=== PATIENT | male | born 1990 | race Caucasian/White ===

== ENCOUNTER 2016-11-09 21:20 | Emergency (ER) | payer BC, OTHER ==
[~2016-11-09] VITALS: Ht 177.8 cm; Wt 75.9 kg
[2016-11-09 21:30] VITALS: TEMP 36.7; Ht 177.8 cm; Wt 75.9 kg
[2016-11-09] MEDS ORDERED: SODIUM CHLORIDE 0.9% 1000ML 1,000 ML IV STA (21:49)
[2016-11-09 21:52] LABS: ISTAT HEMOGLOBIN 12.2 g/dl (14.0-18.0); ISTAT IONIZED CALCIUM 1.2 mmol/l (1.12-1.32)
[2016-11-09 21:54] VITALS: O2SAT 98
[2016-11-09 22:00] LABS: BASO % 0.5 %; BASO ABS # 0.05 K/uL (0-0.2); COMPLETE YES; EOS % 1.7 %; HEMATOCRIT 34.4 % (42-52); IG% 0.2 %; LYMPH % 22.5 %; LYMPH ABS # 2.11 K/uL (1.2-3.4); MEAN CELL VOLUME 88.4 fL (80-100); MEAN CORPUSCULAR HEMOGLOBIN 31.1 pg (25-34); MEAN CORPUSCULAR HGB CONC 35.2 g/dl (32-36); MEAN PLATELET VOLUME 11.3 fL (7.4-10.4); MONO % 8.3 %; NEUT % 66.8 %; PLATELET COUNT 201 K/uL (130-400); RED BLOOD COUNT 3.89 M/uL (4.7-6.1); WHITE BLOOD COUNT 9.39 K/uL (4.8-10.8)
[2016-11-09 22:08] LABS: ALT/SGPT 26 U/L (12-78); BLOOD UREA NITROGEN 16 mg/dl (7-18); BUN/CREATININE RATIO 15.8 (10-20); CALCIUM 8.9 mg/dl (8.5-10.1); CARBON DIOXIDE 28 mmol/L (21-32); CHLORIDE 107 mmol/L (98-107); GLUCOSE 110 mg/dl (70-99); POTASSIUM 3.6 mmol/L (3.5-5.1); SODIUM 140 mmol/L (136-145)
[2016-11-09 22:13] LABS: ALB/GLOB RATIO 1.3 (0.9-2); ALKALINE PHOSPHATASE 44 U/L (45-117); AST/SGOT 25 U/L (15-37)
--- NOTE | 2016-11-09 22:38 | DIAGNOSTIC IMAGING REPORT ---
HEAD WITHOUT CONTRAST (CT) CLINICAL HISTORY: 25 years-old Male with trauma. Acute head injury status post trauma TECHNIQUE: Multiple axial CT images of the head were obtained without contrast. A dose lowering technique was utilized adhering to the principles of ALARA. COMPARISON: CT cervical spine of same day. FINDINGS: No acute intracranial hemorrhage, midline shift, mass, large territorial ischemia or abnormal extra-axial collection. 4 mm area of ill-defined low-attenuation within the inferior left lentiform nucleus suggests prominent perivascular space. The calvarium is intact. The paranasal sinuses, mastoid air cells, and middle ear cavities are clear. IMPRESSION: No acute intracranial abnormality. The above report was generated using voice recognition software. It may contain grammatical, syntax or spelling errors. Electronically signed by: Hussain Brandon M.D. 11/09/2016 10:31 PM Dictated Date/Time: 11/09/2016 10:29 PM
[2016-11-09] MEDS ORDERED: ALPR-411 PO (22:41)
[2016-11-09] MEDS ORDERED: BUPR1SUB23 UT (22:41)
--- NOTE | 2016-11-09 22:41 | DIAGNOSTIC IMAGING REPORT ---
CERVICAL SPINE W/O CLINICAL HISTORY: 25 years-old Male with trauma. Acute neck injury status post trauma COMPARISON: CT head of same day. TECHNIQUE: Multiple axial CT images of the cervical spine were obtained without contrast. A dose lowering technique was utilized adhering to the principles of ALARA. FINDINGS: Vertebral body heights and alignment are normal. No fracture or subluxation is identifed. The intervertebral disc spaces are preserved. No significant central canal or neural foraminal stenosis is identified. There is a 4 mm noncalcified pulmonary nodule of the apical segment right upper lobe seen on image 87 of series 4. A few subpleural blebs are also seen within the right upper lobe. 6 x 5 mm area of soft tissue nodularity noted within the right lateral aspect of the proximal thoracic trachea seen on image 543 of series 5. There is nodularity of the thyroid with a 2.0 x 1.3 cm nodule seen within the distribution of the posterior right thyroid lobe. IMPRESSION: 1. No evidence of acute cervical spine fracture or subluxation. 2. Nonspecific 4 mm noncalcified pulmonary nodule of the right upper lobe. In a patient of this age group this is likely benign. Follow-up chest CT may be considered if of further clinical concern. A few subpleural blebs are also seen within the right upper lobe. 3. 6 mm soft tissue nodule of the right lateral aspect proximal thoracic trachea as above is nonspecific. Differential considerations would include inflammatory polyp, tracheal leiomyoma or hamartoma among other etiologies. 4. Multinodular thyroid with 2.0 cm right thyroid nodule noted. This could be correlated with ultrasound. The above report was generated using voice recognition software. It may contain grammatical, syntax or spelling errors. Electronically signed by: Hussain Brandon M.D. 11/09/2016 10:39 PM Dictated Date/Time: 11/09/2016 10:32 PM
--- NOTE | 2016-11-09 22:49 | DIAGNOSTIC IMAGING REPORT ---
LUMBAR SPINE WITHOUT, THORACIC SPINE WITHOUT HISTORY: 25 years-old Male trauma, pain acute thoracic and lumbar spine pain status post trauma COMPARISON: None available TECHNIQUE: Multiple axial CT images of the thoracic and lumbar spine were obtained without IV contrast. A dose lowering technique was used consistent with the principals of ALARA. FINDINGS: THORACIC SPINE: There are a few small Schmorl's nodes of the mid thoracic spine. No acute fracture, dislocation or significant degenerative changes. No rib fracture identified on these images. There is no high-grade central canal or foraminal narrowing. No acute intra-abdominal, intrapelvic, intrathoracic or paraspinal abnormality identified. Probable mucous plugging is seen within the bronchus intermedius. LUMBAR SPINE: No acute fracture or subluxation identified. No significant degenerative changes. Transitional lumbosacral anatomy is noted with lumbarization of S1. Image ribs appear intact. Mild degenerative changes are seen within the SI joints. Soft tissues are unremarkable. IMPRESSION: 1. No acute fracture or subluxation identified within the thoracic or lumbar spine. 2. No significant degenerative changes. 3. Transitional lumbosacral anatomy with lumbarization of S1. Mild degenerative changes of the bilateral SI joints. The above report was generated using voice recognition software. It may contain grammatical, syntax or spelling errors. Electronically signed by: Hussain Brandon M.D. 11/09/2016 10:48 PM Dictated Date/Time: 11/09/2016 10:42 PM
--- NOTE | 2016-11-09 22:55 | DIAGNOSTIC IMAGING REPORT ---
ABD/PELVIS NO IV OR ORAL CONT HISTORY: 25 years-old Male trauma acute abdominal trauma. Initial exam. COMPARISON: CT chest of same day. TECHNIQUE: Multiple axial CT images of the abdomen and pelvis were obtained without contrast. A dose lowering technique was used consistent with the principals of YEN. FINDINGS: Is mild dependent bibasilar atelectasis. No pneumoperitoneum identified. Imaged inferior cardiac chambers are unremarkable. The liver, gallbladder, spleen, pancreas and adrenal glands are within normal limits. Kidneys, ureters and prostate are unremarkable. There is mild urinary bladder distention. The abdominal aorta is normal in course and caliber. No bulky adenopathy. No focal bowel wall thickening or ascites identified. No bowel obstruction. Moderate formed stool throughout the colon. High attenuating material seen within a noninflamed and nondilated appendix. Soft tissues are unremarkable. The bones appear intact without fracture identified. Mild degenerative changes are seen about the SI joints. Transitional lumbosacral anatomy is noted with lumbarization of S1. IMPRESSION: 1. No acute intra-abdominal or intrapelvic abnormality identified. No evidence of acute solid organ injury. 2. High attenuating material within a noninflamed appendix may reflect an appendicolith. 3. No fracture identified. The above report was generated using voice recognition software. It may contain grammatical, syntax or spelling errors. Electronically signed by: Hussain Brandon M.D. 11/09/2016 10:53 PM Dictated Date/Time: 11/09/2016 10:50 PM
--- NOTE | 2016-11-09 22:58 | DIAGNOSTIC IMAGING REPORT ---
(CHEST) THORAX WITHOUT CLINICAL HISTORY: 25 years-old Male with trauma. Acute chest trauma TECHNIQUE: Multiaxial CT images of the chest were performed without contrast. A dose lowering technique was utilized adhering to the principles of ALARA. COMPARISON: CT abdomen and pelvis of same day. FINDINGS: Nodularity of the thyroid is noted with a right thyroid nodule measuring up to 2.0 cm. Focal area of nodularity involving the right lateral aspect of the proximal thoracic trachea as seen on image 29 of series 8. No pathologic adenopathy of the chest identified. Heart is normal in size without pericardial effusion. Mild residual thymic tissue noted. No pneumothorax or pleural effusion. 4 mm noncalcified pulmonary nodules seen involving the apical segment right upper lobe on image 32 series 8. A few subpleural blebs are also present within the right lung apex. Mild dependent bibasilar atelectasis. Minimal nodularity within the region of the bronchus intermedius on image 121 of series 8 suggests a mucous plugging. This appears to contain some central air. Imaged upper abdominal structures are unremarkable. Soft tissues are within normal limits. No acute fracture identified. The ribs and spine appear intact. No sternal fracture identified. Air within the region of the sternoclavicular joints bilaterally is likely degenerative. IMPRESSION: 1. No acute intrathoracic abnormality identified. No pneumothorax. 2. No acute fracture identified. 3. Multinodular thyroid with 2.0 cm right thyroid nodule. This could be further evaluated with follow-up ultrasound. 4. Soft tissue nodularity of the lateral right trachea as discussed on CT cervical spine of same day. Electronically signed by: Hussain Brandon M.D. 11/09/2016 10:57 PM Dictated Date/Time: 11/09/2016 10:53 PM
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
[2016-11-09] MEDS ORDERED: ACETAMINOPHEN 500 MG TAB PO STA (23:31)
[2016-11-10 00:29] LABS: URINE APPEARANCE CLEAR (CLEAR); URINE BILIRUBIN NEG (NEG); URINE COLOR YELLOW; URINE NITRITE NEG (NEG); URINE PH 5.5 (4.5-7.5); URINE SPECIFIC GRAVITY 1.032 (1.000-1.030); UROBILINOGEN NEG (NEG)
[2016-11-10 00:35] VITALS: BP 116/69; PULSE 72; O2SAT 98
[2016-11-10 00:37] LABS: MANUAL MICROSCOPIC REQUIRED? NO; REVIEW REQ? NO
[2016-11-10 00:56] LABS: BENZODIAZEPINE, URINE POS (NEG); COCAINE,URINE POS (NEG); PHENCYCLIDINE, URINE NEG (NEG)
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
[2016-11-12 15:18] LABS: COCAINE, URINE >50000 NG/ML (CUTOFF=100); COD UR 449 NG/ML (CUTOFF=50); HYDROCOD UR NEGATIVE NG/ML (CUTOFF=50); HYDROMOR UR 370 NG/ML (CUTOFF=50); HYDROXYETHYLFLURAZEPAM CONF NEGATIVE NG/ML (CUTOFF=50); HYDROXYMIDAZOLAM NEGATIVE NG/ML (CUTOFF=50); HYDROXYTRIAZOLAM CONF NEGATIVE NG/ML (CUTOFF=50); MORPHINE UR >20000 NG/ML (CUTOFF=50); NORHYDROCODONE CONF UR NEGATIVE NG/ML (CUTOFF=50); OXYMORPH UR NEGATIVE NG/ML (CUTOFF=50); TEMAZEPAM CONF NEGATIVE NG/ML (CUTOFF=50)
== END 2016-11-10 00:47 | disposition home or self-care (01) ==
LOC: EDBD 21:20 → C.EDA 21:22
DX: S09.90XA Unspecified injury of head, initial encounter (principal); T14.8XXA Other injury of unspecified body region, initial encounter; M54.5 Low back pain; V44.5XXA Car driver injured in collision with heavy transport vehicle or bus in traffic accident, initial encounter; Y92.488 Other paved roadways as the place of occurrence of the external cause; F17.210 Nicotine dependence, cigarettes, uncomplicated